=== PATIENT | female | born 2000 | race Caucasian/White ===

== ENCOUNTER 2018-08-07 22:51 | Outpatient (CLI) | payer BC ==
[2018-08-07] MEDS: ACETAMINOPHEN 500 MG TAB PO (23:47)
[2018-08-07 23:59] LABS: ADD MAN DIFF? NO
[2018-08-08] LABS: BASOPHILS % 0.2 % (0.0-2.0); HEMATOCRIT 33.1 % (37.0-47.0); HEMOGLOBIN 10.6 g/dl (12.0-16.0); LYMPHOCYTES # 2.1 10^3/ul (0.8-2.9); LYMPHOCYTES % 13.2 % (18.0-55.0); MEAN CORPUSCULAR HEMOGLOBIN 27.5 pg (29.0-33.0); MEAN PLATELET VOLUME 10.7 fl (7.4-10.4); MONOCYTE # 1.3 10^3/ul (0.3-0.9); MONOCYTES % 7.9 % (0.0-13.0); NEUTROPHIL # 12.4 10^3/ul (1.6-7.5); NEUTROPHILS % 77.6 % (30.0-74.0); PLATELET COUNT 330 10^3/UL (140-415); RED BLOOD COUNT 3.85 10^6/ul (4.20-5.40); RED CELL DISTRIBUTION WIDTH 12.3 % (11.5-14.5)
[2018-08-08] MEDS: BETAMET NA PHOS/AC(6 MG/ML) 2 ML INJ SYG IM (00:02)
[2018-08-08 00:05] LABS: ADD UMIC YES; UR ASCORBIC ACID NEGATIVE (NEGATIVE); UR BILIRUBIN (Dip) 1+ mg/dL (NEGATIVE); UR BLOOD (Dip) NEGATIVE (NEGATIVE); UR CLARITY SLIGHTLY CLOUDY (CLEAR); UR COLOR AMBER (YELLOW); UR GLUCOSE (Dip) NEGATIVE (NEGATIVE); UR KETONES (Dip) TRACE mg/dL (NEGATIVE); UR LEUKOCYTE ESTERASE (Dip) TRACE Leu/ul (NEGATIVE); UR MUCUS MANY /HPF (NONE SEEN); UR NITRITE (Dip) NEGATIVE (NEGATIVE); UR RBC 0 /HPF (0-5); UR SQUAMOUS EPITHELIAL CELL FEW /HPF (FEW); UR TOTAL PROTEIN (Dip) 1+ mg/dl (NEGATIVE); UR UROBILINOGEN (Dip) 2+ mg/dL (NEGATIVE); UR WBC 5 /HPF (0-5)
== END 2018-08-08 01:40 | disposition home or self-care (01) ==
LOC: OBT 22:51 → L-D 22:52
DX: O60.03 Preterm labor without delivery, third trimester (principal); Z3A.30 30 weeks gestation of pregnancy
CPT/HCPCS: 76817; 76818; 81001; 85025; 87086

== ENCOUNTER 2018-08-09 12:44 | Inpatient (IN) | payer BC ==
[2018-08-09 13:25] LABS: ADD UMIC NO; UR ASCORBIC ACID 20 mg/dL (NEGATIVE); UR BILIRUBIN (Dip) NEGATIVE (NEGATIVE); UR BLOOD (Dip) NEGATIVE (NEGATIVE); UR CLARITY CLEAR (CLEAR); UR COLOR AMBER (YELLOW); UR GLUCOSE (Dip) NEGATIVE (NEGATIVE); UR KETONES (Dip) 2+ mg/dL (NEGATIVE); UR LEUKOCYTE ESTERASE (Dip) NEGATIVE Leu/ul (NEGATIVE); UR NITRITE (Dip) NEGATIVE (NEGATIVE); UR SPECIFIC GRAVITY (Dip) 1.025 (1.003-1.030); UR TOTAL PROTEIN (Dip) NEGATIVE (NEGATIVE); UR UROBILINOGEN (Dip) 2+ mg/dL (NEGATIVE)
[2018-08-09] MEDS ORDERED: LACTATED RINGER'S 1,000 ML IV (14:00)
[2018-08-09] MEDS ORDERED: CEFTRIAXONE 1 GM INJ IVPB (14:00)
[2018-08-09] MEDS ORDERED: CEFTRIAXONE 1 GM/NS 50 ML IVPB (15:00)
[2018-08-09] MEDS: SOD CHLORIDE 0.9% 1,000 ML IV (17:11)
[2018-08-09] MEDS: CEFTRIAXONE 1 GM/50 ML (PMX) 50 ML IVPB (17:34)
[2018-08-09] MEDS: NIFEdipine (XL) 30 MG TAB PO (21:35)
[2018-08-10] MEDS: SOD CHLORIDE 0.9% 1,000 ML IV ×3 (00:11→09:17)
[2018-08-10] MEDS: FERROUS SULFATE (EC) 325 MG TAB PO (09:17)
[2018-08-10] MEDS: PRENATAL VITAMIN PO (09:17)
[2018-08-10] MEDS: NIFEdipine (XL) 30 MG TAB PO (09:20)
[2018-08-10 11:09] LABS: ALANINE AMINOTRANSFERASE 114 IU/L (13-69); ALBUMIN 3.8 g/dl (3.3-4.9); ALBUMIN/GLOBULIN RATIO 1.11; ALKALINE PHOSPHATASE 158 IU/L (42-121); ANION GAP 7 (5-13); ASPARTATE AMINO TRANSFERASE 92 IU/L (15-46); BILIRUBIN,INDIRECT 0.3 mg/dl (0-1.1); BILIRUBIN,TOTAL 0.3 mg/dl (0.2-1.3); BLOOD UREA NITROGEN 7 mg/dl (7-20); CALCIUM 8.9 mg/dl (8.4-10.2); CARBON DIOXIDE 24 mmol/L (21-31); CHLORIDE 107 mmol/L (97-110); CREATININE 0.33 mg/dl (0.44-1.00); Estimated GFR > 60 mL/min (>60); GLUCOSE 74 mg/dl (70-220); POTASSIUM 3.9 mmol/L (3.5-5.1); SODIUM 138 mmol/L (135-144); TOTAL PROTEIN 7.2 g/dl (6.1-8.1)
[2018-08-10 11:42] LABS: ADD MAN DIFF? NO
[2018-08-10 11:44] LABS: BASOPHILS % 0.3 % (0.0-2.0); EOSINOPHILS # 0.1 10^3/ul (0.0-0.5); EOSINOPHILS % 0.4 % (0.0-7.0); HEMATOCRIT 30.8 % (37.0-47.0); HEMOGLOBIN 9.8 g/dl (12.0-16.0); LYMPHOCYTES # 2.1 10^3/ul (0.8-2.9); LYMPHOCYTES % 18.3 % (18.0-55.0); MEAN CORPUSCULAR HEMOGLOBIN 27.6 pg (29.0-33.0); MEAN CORPUSCULAR HGB CONC 31.8 g/dl (32.0-37.0); MEAN CORPUSCULAR VOLUME 86.8 fl (72.0-104.0); MEAN PLATELET VOLUME 10.7 fl (7.4-10.4); MONOCYTES % 8.6 % (0.0-13.0); NEUTROPHIL # 8.3 10^3/ul (1.6-7.5); NEUTROPHILS % 71.6 % (30.0-74.0); PLATELET COUNT 315 10^3/UL (140-415); RED BLOOD COUNT 3.55 10^6/ul (4.20-5.40); RED CELL DISTRIBUTION WIDTH 12.5 % (11.5-14.5)
[2018-08-10 11:44] LABS: WHITE BLOOD COUNT 11.6 10^3/ul (4.8-10.8)
[2018-08-10] MEDS: CALCIUM/VITAMIN D (500/200) TAB PO (12:08)
[2018-08-10] MEDS: LACTATED RINGER'S 1,000 ML IV (16:51)
[2018-08-10] MEDS ORDERED: CEFTRIAXONE 1 GM/NS 50 ML IVPB (18:00)
[2018-08-11] MEDS: LACTATED RINGER'S 1,000 ML IV (03:23)
[2018-08-11] MEDS: FERROUS SULFATE (EC) 325 MG TAB PO (09:15)
[2018-08-11] MEDS: CALCIUM/VITAMIN D (500/200) TAB PO (09:15)
[2018-08-11] MEDS: PRENATAL VITAMIN PO (09:15)
== END 2018-08-11 16:02 | disposition home or self-care (01) | DRG 832 ==
LOC: OBT 12:44 → L-D 12:44 → OBT 14:10 → L-D 13:58 → PP1 14:58
DX: O99.613 Diseases of the digestive system complicating pregnancy, third trimester (principal); K80.60 Calculus of gallbladder and bile duct with cholecystitis, unspecified, without obstruction; Z3A.31 31 weeks gestation of pregnancy
CPT/HCPCS: 76705; 76817; 80053; 81003; 85025; 87086

== ENCOUNTER 2018-09-16 15:53 | Outpatient (CLI) | payer BC ==
[2018-09-16 16:57] LABS: ADD MAN DIFF? NO
[2018-09-16 16:58] LABS: WHITE BLOOD COUNT 10.6 10^3/ul (4.8-10.8)
[2018-09-16 16:58] LABS: BASOPHILS % 0.3 % (0.0-2.0); HEMATOCRIT 33.9 % (37.0-47.0); HEMOGLOBIN 10.7 g/dl (12.0-16.0); LYMPHOCYTES # 1.4 10^3/ul (0.8-2.9); LYMPHOCYTES % 13.4 % (18.0-55.0); MEAN CORPUSCULAR HEMOGLOBIN 25.7 pg (29.0-33.0); MEAN CORPUSCULAR HGB CONC 31.6 g/dl (32.0-37.0); MEAN CORPUSCULAR VOLUME 81.5 fl (72.0-104.0); MEAN PLATELET VOLUME 11.3 fl (7.4-10.4); MONOCYTE # 0.6 10^3/ul (0.3-0.9); MONOCYTES % 5.8 % (0.0-13.0); NEUTROPHIL # 8.5 10^3/ul (1.6-7.5); NEUTROPHILS % 80.2 % (30.0-74.0); PLATELET COUNT 285 10^3/UL (140-415); RED BLOOD COUNT 4.16 10^6/ul (4.20-5.40); RED CELL DISTRIBUTION WIDTH 13.1 % (11.5-14.5)
[2018-09-16 17:17] LABS: ALBUMIN/GLOBULIN RATIO 1.08; ANION GAP 10 (5-13); BILIRUBIN,TOTAL 0.3 mg/dl (0.2-1.3); Estimated GFR > 60 mL/min (>60)
[2018-09-16] MEDS ORDERED: LACTATED RINGER'S 1,000 ML IV (17:30)
[2018-09-16 17:32] LABS: ADD UMIC YES; UR ASCORBIC ACID NEGATIVE (NEGATIVE); UR BACTERIA FEW /HPF (NONE SEEN); UR BILIRUBIN (Dip) NEGATIVE (NEGATIVE); UR BLOOD (Dip) NEGATIVE (NEGATIVE); UR CLARITY CLEAR (CLEAR); UR COLOR YELLOW (YELLOW); UR GLUCOSE (Dip) NEGATIVE (NEGATIVE); UR KETONES (Dip) 1+ mg/dL (NEGATIVE); UR LEUKOCYTE ESTERASE (Dip) 1+ Leu/ul (NEGATIVE); UR MUCUS FEW /HPF (NONE SEEN); UR NITRITE (Dip) NEGATIVE (NEGATIVE); UR RBC 2 /HPF (0-5); UR SPECIFIC GRAVITY (Dip) 1.024 (1.003-1.030); UR SQUAMOUS EPITHELIAL CELL FEW /HPF (FEW); UR TOTAL PROTEIN (Dip) NEGATIVE (NEGATIVE); UR UROBILINOGEN (Dip) 2+ mg/dL (NEGATIVE); UR WBC 6 /HPF (0-5)
[2018-09-16 17:34] LABS: ALANINE AMINOTRANSFERASE 25 IU/L (13-69); ALBUMIN 3.8 g/dl (3.3-4.9); ALKALINE PHOSPHATASE 258 IU/L (42-121); AMYLASE 51 U/L (11-123); ASPARTATE AMINO TRANSFERASE 48 IU/L (15-46); BILIRUBIN,INDIRECT 0.3 mg/dl (0-1.1); BLOOD UREA NITROGEN 8 mg/dl (7-20); CALCIUM 9.4 mg/dl (8.4-10.2); CARBON DIOXIDE 25 mmol/L (21-31); CHLORIDE 103 mmol/L (97-110); CREATININE 0.53 mg/dl (0.44-1.00); GLUCOSE 88 mg/dl (70-220); LIPASE 60 U/L (23-300); POTASSIUM 4.1 mmol/L (3.5-5.1); SODIUM 138 mmol/L (135-144); TOTAL PROTEIN 7.3 g/dl (6.1-8.1)
[2018-09-16] MEDS: LACTATED RINGER'S 1,000 ML IV (17:36)
[2018-09-16] MEDS: BETAMET NA PHOS/AC(6 MG/ML) 2 ML INJ SYG IM (19:29)
[2018-09-16] MEDS ORDERED: AL HYDROX/MG HYDROX/SIMETH 30 ML CUP PO (21:00)
[2018-09-17] MEDS ORDERED: PRENATAL VITAMIN PO (09:00)
== END 2018-09-16 21:30 | disposition home or self-care (01) ==
LOC: OBT 15:53 → L-D 15:54 → OBT 20:45 → PP1 20:45 → OBT 21:30
DX: O99.613 Diseases of the digestive system complicating pregnancy, third trimester (principal); K80.20 Calculus of gallbladder without cholecystitis without obstruction; Z3A.36 36 weeks gestation of pregnancy
CPT/HCPCS: 76705; 76818; 80053; 81001; 82150; 83690; 85025; 96360; 96372

== ENCOUNTER 2018-09-17 19:36 | Outpatient (CLI) | payer BC ==
[2018-09-17] MEDS ORDERED: BETAMET NA PHOS/AC(6 MG/ML) 5ML INJ INJ (21:00)
[2018-09-17] MEDS: BETAMET NA PHOS/AC(6 MG/ML) 2 ML INJ SYG IM (21:00)
== END 2018-09-17 21:20 | disposition home or self-care (01) ==
LOC: OBT 19:36 → L-D 19:36 → OBT 21:20
DX: O99.613 Diseases of the digestive system complicating pregnancy, third trimester (principal); K80.20 Calculus of gallbladder without cholecystitis without obstruction; O62.9 Abnormality of forces of labor, unspecified; Z3A.36 36 weeks gestation of pregnancy
CPT/HCPCS: 96372

== ENCOUNTER 2018-10-03 20:07 | Inpatient (IN) | payer BC ==
[2018-10-03] MEDS ORDERED: LACTATED RINGER'S 1,000 ML IV (20:35)
[2018-10-03 21:00] LABS: ADD MAN DIFF? NO
[2018-10-03] MEDS ORDERED: BUTORPHANOL 2 MG INJ IV (21:00)
[2018-10-03] MEDS ORDERED: CARBOPROST 250 MCG INJ IM (21:00)
[2018-10-03] MEDS ORDERED: OXYTOCIN 30 UNITS/LR 500 ML IV (21:00)
[2018-10-03] MEDS ORDERED: METHYLERGONOVINE 0.2 MG INJ IM (21:00)
[2018-10-03] MEDS ORDERED: IBUPROFEN 600 MG TAB PO (21:00)
[2018-10-03] MEDS ORDERED: MISOPROSTOL 200 MCG TAB PR (21:00)
[2018-10-03 21:02] LABS: BASOPHILS % 0.2 % (0.0-2.0); HEMATOCRIT 36.7 % (37.0-47.0); HEMOGLOBIN 11.4 g/dl (12.0-16.0); LYMPHOCYTES # 1.8 10^3/ul (0.8-2.9); LYMPHOCYTES % 12.2 % (18.0-55.0); MEAN CORPUSCULAR HEMOGLOBIN 25.2 pg (29.0-33.0); MEAN CORPUSCULAR HGB CONC 31.1 g/dl (32.0-37.0); MEAN PLATELET VOLUME 11.6 fl (7.4-10.4); MONOCYTE # 0.8 10^3/ul (0.3-0.9); MONOCYTES % 5.5 % (0.0-13.0); NEUTROPHIL # 12.1 10^3/ul (1.6-7.5); NEUTROPHILS % 81.6 % (30.0-74.0); PLATELET COUNT 272 10^3/UL (140-415); RED BLOOD COUNT 4.53 10^6/ul (4.20-5.40); RED CELL DISTRIBUTION WIDTH 14.3 % (11.5-14.5)
[2018-10-03 21:02] LABS: WHITE BLOOD COUNT 14.9 10^3/ul (4.8-10.8)
[2018-10-03 21:22] LABS: ALANINE AMINOTRANSFERASE 15 IU/L (13-69); ALBUMIN/GLOBULIN RATIO 0.95; ALKALINE PHOSPHATASE 298 IU/L (42-121); ANION GAP 10 (5-13); ASPARTATE AMINO TRANSFERASE 28 IU/L (15-46); BILIRUBIN,INDIRECT 0.1 mg/dl (0-1.1); BILIRUBIN,TOTAL 0.1 mg/dl (0.2-1.3); BLOOD UREA NITROGEN 12 mg/dl (7-20); CALCIUM 9.8 mg/dl (8.4-10.2); CARBON DIOXIDE 24 mmol/L (21-31); CHLORIDE 103 mmol/L (97-110); Estimated GFR > 60 mL/min (>60); GLUCOSE 74 mg/dl (70-220); POTASSIUM 3.9 mmol/L (3.5-5.1); SODIUM 137 mmol/L (135-144); TOTAL PROTEIN 8.2 g/dl (6.1-8.1); URIC ACID 5.1 mg/dl (3.1-7.9)
[2018-10-03 21:23] LABS: INR 0.89; PROTIME 12.1 Sec (11.9-14.9); PT RATIO 0.9
[2018-10-03 21:24] LABS: PARTIAL THROMBOPLASTIN TIME 25.3 Sec (23.0-35.0)
[2018-10-03] MEDS: LACTATED RINGER'S 1,000 ML IV (21:45)
[2018-10-03 21:51] LABS: HEPATITIS B SURFACE ANTIGEN NEGATIVE (NEGATIVE)
[2018-10-03 23:13] LABS: ADD UMIC NO; UR ASCORBIC ACID NEGATIVE (NEGATIVE); UR BILIRUBIN (Dip) NEGATIVE (NEGATIVE); UR BLOOD (Dip) NEGATIVE (NEGATIVE); UR CLARITY CLEAR (CLEAR); UR COLOR YELLOW (YELLOW); UR GLUCOSE (Dip) NEGATIVE (NEGATIVE); UR KETONES (Dip) TRACE mg/dL (NEGATIVE); UR LEUKOCYTE ESTERASE (Dip) NEGATIVE Leu/ul (NEGATIVE); UR NITRITE (Dip) NEGATIVE (NEGATIVE); UR SPECIFIC GRAVITY (Dip) 1.021 (1.003-1.030); UR TOTAL PROTEIN (Dip) NEGATIVE (NEGATIVE); UR UROBILINOGEN (Dip) NEGATIVE (NEGATIVE)
[2018-10-03] MEDS: ONDANSETRON 4 MG INJ IV (23:27)
[2018-10-03] MEDS ORDERED: MINERAL OIL LIGHT 10 ML VIAL (23:46)
[2018-10-04] MEDS: MINERAL OIL LIGHT 10 ML VIAL TOP (01:12)
[2018-10-04] MEDS: OXYTOCIN 30 UNITS/LR 500 ML IV ×2 (01:24→01:42)
[2018-10-04] MEDS: LIDOCAINE 1% (MPF) 30 ML INJ INJ (01:31)
[2018-10-04] MEDS ORDERED: MISOPROSTOL 200 MCG TAB PR (03:30)
[2018-10-04] MEDS ORDERED: OXYCODONE/ASPIRIN (4.88/325) TAB PO ×2 (03:30)
[2018-10-04] MEDS ORDERED: METHYLERGONOVINE 0.2 MG INJ IM (03:30)
[2018-10-04] MEDS ORDERED: ZOLPIDEM 5 MG TAB PO (03:30)
[2018-10-04] MEDS ORDERED: CARBOPROST 250 MCG INJ IM (03:30)
[2018-10-04] MEDS ORDERED: OXYTOCIN 30 UNITS/LR 500 ML IV (03:30)
[2018-10-04] MEDS: LANOLIN HPA 1 PKT TOP ×2 (03:42→03:43)
[2018-10-04] MEDS: WITCH HAZEL/GLYCERIN PAD PR (03:42)
[2018-10-04] MEDS: BENZOCAINE 20% 56 ML SPRAY TOP (03:42)
[2018-10-04] MEDS: IBUPROFEN 600 MG TAB PO ×3 (05:19→17:36)
[2018-10-04] MEDS: SENNA/DOCUSATE NA (8.6MG/50MG) TAB PO ×2 (09:19→21:42)
[2018-10-04] MEDS: PRENATAL VITAMIN PO (09:19)
[2018-10-04 16:50] LABS: RAPID PLASMA REAGIN NONREACTIVE (NR)
[2018-10-05] MEDS: IBUPROFEN 600 MG TAB PO ×5 (00:31→23:26)
[2018-10-05] MEDS: PRENATAL VITAMIN PO (08:20)
[2018-10-05] MEDS: SENNA/DOCUSATE NA (8.6MG/50MG) TAB PO ×2 (08:20→21:22)
[2018-10-05 08:38] LABS: ADD MAN DIFF? NO
[2018-10-05 08:44] LABS: BASOPHILS % 0.2 % (0.0-2.0); EOSINOPHILS # 0.1 10^3/ul (0.0-0.5); EOSINOPHILS % 0.5 % (0.0-7.0); HEMOGLOBIN 9.2 g/dl (12.0-16.0); LYMPHOCYTES # 3.3 10^3/ul (0.8-2.9); LYMPHOCYTES % 25.6 % (18.0-55.0); MEAN CORPUSCULAR HEMOGLOBIN 25.8 pg (29.0-33.0); MEAN CORPUSCULAR HGB CONC 31.7 g/dl (32.0-37.0); MEAN CORPUSCULAR VOLUME 81.5 fl (72.0-104.0); MONOCYTE # 0.9 10^3/ul (0.3-0.9); MONOCYTES % 6.9 % (0.0-13.0); NEUTROPHIL # 8.6 10^3/ul (1.6-7.5); NEUTROPHILS % 66.3 % (30.0-74.0); PLATELET COUNT 218 10^3/UL (140-415); RED BLOOD COUNT 3.56 10^6/ul (4.20-5.40); RED CELL DISTRIBUTION WIDTH 14.7 % (11.5-14.5)
[2018-10-06] MEDS: IBUPROFEN 600 MG TAB PO ×3 (05:37→18:15)
[2018-10-06] MEDS: PRENATAL VITAMIN PO (09:01)
[2018-10-06] MEDS: SENNA/DOCUSATE NA (8.6MG/50MG) TAB PO (09:01)
[2018-10-06] MEDS: DIPHTH/TET/ACEL PERTUSS (ADULT) 0.5 ML VIAL IM* (12:36)
== END 2018-10-06 20:10 | disposition home or self-care (01) | DRG 807 ==
LOC: OBT 20:07 → PP1 10-04 03:18 → L-D 20:08 → OBT 20:33 → L-D 20:33
PROC: 10E0XZZ Delivery of Products of Conception, External Approach (ICD-10-PCS; principal; 2018-10-04)
DX: O99.62 Diseases of the digestive system complicating childbirth (principal); Z37.0 Single live birth; K80.20 Calculus of gallbladder without cholecystitis without obstruction; Z3A.39 39 weeks gestation of pregnancy
CPT/HCPCS: 80053; 81003; 84560; 85025; 85384; 85610; 85730; 86592; 86850; 86900; 86901; 87086; 87340; 90715

== ENCOUNTER 2018-11-21 19:06 | Emergency (ER) | payer SELFPAY, BC | END 2018-11-21 23:48 | disposition left against medical advice (07) | LOC: FTE 19:06 | DX: Z53.21 Procedure and treatment not carried out due to patient leaving prior to being seen by health care provider (principal) ==

== ENCOUNTER 2018-11-22 04:52 | Inpatient (IN) | payer BC ==
[2018-11-22] MEDS ORDERED: NACL 0.9% 3 ML SYG IV (06:00)
[2018-11-22] MEDS ORDERED: morphine 2 MG INJ IV (06:00)
[2018-11-22] MEDS: DEXTROSE 5%-0.45% NACL 1,000 ML IV ×3 (06:14→21:49)
[2018-11-22] MEDS: PIPER-TAZO 3.375 GM IV (PMX) 100 ML IVPB ×4 (07:53→23:56)
[2018-11-22 08:26] LABS: WHITE BLOOD COUNT 23.6 10^3/ul (4.8-10.8)
[2018-11-22 08:26] LABS: ABNORMAL IP MESSAGE 1; HEMATOCRIT 39.1 % (37.0-47.0); HEMOGLOBIN 12.1 g/dl (12.0-16.0); MEAN CORPUSCULAR HEMOGLOBIN 25.9 pg (29.0-33.0); MEAN CORPUSCULAR HGB CONC 30.9 g/dl (32.0-37.0); MEAN CORPUSCULAR VOLUME 83.5 fl (72.0-104.0); MEAN PLATELET VOLUME 10.7 fl (7.4-10.4); PLATELET COUNT 544 10^3/UL (140-415); RED BLOOD COUNT 4.68 10^6/ul (4.20-5.40); RED CELL DISTRIBUTION WIDTH 16.8 % (11.5-14.5)
[2018-11-22 08:27] LABS: POSITIVE DIFF @See below
[2018-11-22 08:28] LABS: ADD MAN DIFF? YES
[2018-11-22 08:40] LABS: BASOPHILS % 0.2 % (0.0-2.0); LYMPHOCYTES # 0.9 10^3/ul (0.8-2.9); LYMPHOCYTES % 3.6 % (18.0-55.0); MONOCYTE # 1.5 10^3/ul (0.3-0.9); MONOCYTES % 6.3 % (0.0-13.0); NEUTROPHIL # 21.1 10^3/ul (1.6-7.5); NEUTROPHILS % 89.3 % (30.0-74.0)
[2018-11-22] MEDS: morphine 4 MG/ML VIAL IV ×2 (08:45→15:50)
[2018-11-22 08:46] LABS: ALANINE AMINOTRANSFERASE 16 IU/L (13-69); ALBUMIN 4.6 g/dl (3.3-4.9); ALBUMIN/GLOBULIN RATIO 1.31; ALKALINE PHOSPHATASE 65 IU/L (42-121); ANION GAP 12 (5-13); ASPARTATE AMINO TRANSFERASE 31 IU/L (15-46); BILIRUBIN,INDIRECT 0.2 mg/dl (0-1.1); BILIRUBIN,TOTAL 0.2 mg/dl (0.2-1.3); BLOOD UREA NITROGEN 13 mg/dl (7-20); CALCIUM 9.8 mg/dl (8.4-10.2); CARBON DIOXIDE 28 mmol/L (21-31); CHLORIDE 105 mmol/L (97-110); CREATININE 0.47 mg/dl (0.44-1.00); Estimated GFR > 60 mL/min (>60); GLUCOSE 159 mg/dl (70-220); POTASSIUM 3.7 mmol/L (3.5-5.1); SODIUM 145 mmol/L (135-144); TOTAL PROTEIN 8.1 g/dl (6.1-8.1)
[2018-11-22 09:35] LABS: ANISOCYTOSIS 1+ (0-0); BAND NEUTROPHILS #M 1.4 10^3/ul (0.0-0.6); BAND NEUTROPHILS % (M) 6 % (0-10); GIANT THROMBO% (M) 1 % (0-0); LYMPHOCYTES #M 0.7 10^3/ul (0.8-2.9); LYMPHOCYTES % (M) 3 % (18-55); MICROCYTOSIS 1+ (0-0); MONOCYTE #M 0.7 10^3/ul (0.3-0.9); MONOCYTES % (M) 3 % (0-13); OVALOCYTES 1+ (0-0); PLATELET ESTIMATE INCREASED; POLYCHROMASIA 2+ (0-0); SEG NEUT #M 21.1 10^3/ul (1.6-7.5); SEGMENTED NEUTROPHILS (M) % 88 % (30-74); SMUDGE%M 5 % (0-0)
[2018-11-22] MEDS: ONDANSETRON 4 MG INJ IV (18:19)
[2018-11-22] MEDS: KETOROLAC 30 MG INJ IV (21:49)
[2018-11-23] MEDS: KETOROLAC 30 MG INJ IV ×3 (04:54→19:00)
[2018-11-23] MEDS: PIPER-TAZO 3.375 GM IV (PMX) 100 ML IVPB ×3 (05:06→17:59)
[2018-11-23] MEDS: DEXTROSE 5%-0.45% NACL 1,000 ML IV ×2 (06:55→08:04)
[2018-11-23 07:01] LABS: ADD MAN DIFF? NO
[2018-11-23 07:08] LABS: WHITE BLOOD COUNT 19.5 10^3/ul (4.8-10.8)
[2018-11-23 07:08] LABS: ABNORMAL IP MESSAGE 1; BASOPHILS % 0.1 % (0.0-2.0); EOSINOPHILS % 0.1 % (0.0-7.0); HEMATOCRIT 31.8 % (37.0-47.0); HEMOGLOBIN 9.8 g/dl (12.0-16.0); LYMPHOCYTES # 1.4 10^3/ul (0.8-2.9); LYMPHOCYTES % 7.1 % (18.0-55.0); MEAN CORPUSCULAR HEMOGLOBIN 25.7 pg (29.0-33.0); MEAN CORPUSCULAR HGB CONC 30.8 g/dl (32.0-37.0); MEAN CORPUSCULAR VOLUME 83.2 fl (72.0-104.0); MEAN PLATELET VOLUME 10.4 fl (7.4-10.4); MONOCYTE # 1.6 10^3/ul (0.3-0.9); MONOCYTES % 7.9 % (0.0-13.0); NEUTROPHIL # 16.5 10^3/ul (1.6-7.5); NEUTROPHILS % 84.3 % (30.0-74.0); PLATELET COUNT 349 10^3/UL (140-415); RED BLOOD COUNT 3.82 10^6/ul (4.20-5.40); RED CELL DISTRIBUTION WIDTH 16.7 % (11.5-14.5)
[2018-11-23 07:14] LABS: POSITIVE DIFF @See below
[2018-11-23 07:31] LABS: LIPASE 1582 U/L (23-300)
[2018-11-23 08:58] LABS: ANION GAP 11 (5-13); BLOOD UREA NITROGEN 7 mg/dl (7-20); CALCIUM 9.1 mg/dl (8.4-10.2); CARBON DIOXIDE 28 mmol/L (21-31); CHLORIDE 101 mmol/L (97-110); Estimated GFR > 60 mL/min (>60); GLUCOSE 100 mg/dl (70-220); MAGNESIUM 1.8 mg/dl (1.7-2.5); POTASSIUM 3.1 mmol/L (3.5-5.1); SODIUM 140 mmol/L (135-144)
[2018-11-23] MEDS: POTASSIUM CHLORIDE 30 MEQ in SOD CHLORIDE 0.9% 1,000 ML IV (15:27)
[2018-11-23] MEDS: POTASSIUM CHLORIDE 100 ML IVPB ×2 (15:27→19:00)
[2018-11-23] MEDS ORDERED: LABETALOL HCL 20MG INJ IV ×2 (16:30→22:00)
[2018-11-23] MEDS ORDERED: ONDANSETRON 4 MG INJ IV ×3 (16:30→23:30)
[2018-11-23] MEDS ORDERED: FENTAnyl 50 MCG/ML VIAL IV ×5 (16:30→22:00)
[2018-11-23] MEDS ORDERED: hydrALAzine 20 MG INJ IV ×2 (16:30→22:00)
[2018-11-23] MEDS ORDERED: EPHEDrine SULFATE 50 MG/5 ML SYG IV ×2 (16:30→22:00)
[2018-11-23] MEDS ORDERED: METOCLOPRAMIDE 10 MG INJ IV ×2 (16:30→22:00)
[2018-11-23] MEDS: PROPOFOL 40 ML (16:48)
[2018-11-23] MEDS: PANTOPRAZOLE 40 MG INJ IV (17:59)
[2018-11-23] MEDS: INDOMETHACIN 50 MG SUPP PR (18:00)
[2018-11-23] MEDS ORDERED: ROPIVACAINE 0.5 % 30 ML VIAL (21:08)
[2018-11-23] MEDS ORDERED: FENTAnyl 50 MCG/ML VIAL ×2 (21:08→21:53)
[2018-11-23] MEDS ORDERED: PROPOFOL 20 ML (21:08)
[2018-11-23] MEDS ORDERED: MIDAZOLAM 1 MG/ML 2 ML INJ (21:08)
[2018-11-23] MEDS ORDERED: ROCURONIUM 50 MG INJ (21:08)
[2018-11-23] MEDS: BUPIVACAINE 0.5%/EPI (SDV) 30 ML INJ (21:57)
[2018-11-23] MEDS: LIDOCAINE 2% (MDV) 20 ML INJ (21:57)
[2018-11-23] MEDS ORDERED: HYDROmorphONE 1 MG/5 ML IV SYRINGE IV ×3 (22:00)
[2018-11-23] MEDS ORDERED: CEFAZOLIN 1 GM INJ (22:00)
[2018-11-23] MEDS ORDERED: MEPERIDINE 25 MG INJ IV (22:00)
[2018-11-23] MEDS ORDERED: DEXAMETHASONE 4 MG/ML 5 ML INJ (22:00)
[2018-11-23] MEDS ORDERED: DIPHENHYDRAMINE 50 MG INJ IV (22:00)
[2018-11-23] MEDS ORDERED: KETOROLAC 30 MG INJ (22:00)
[2018-11-23] MEDS ORDERED: ONDANSETRON 4 MG INJ (22:00)
[2018-11-23] MEDS ORDERED: METOCLOPRAMIDE 10 MG INJ (22:00)
[2018-11-23] MEDS ORDERED: NEOSTIGMINE 3 MG/3 ML SYRINGE ×2 (22:36)
[2018-11-23] MEDS ORDERED: GLYCOPYRROLATE 0.4 MG INJ (22:36)
[2018-11-23] MEDS ORDERED: ACETAMINOPHEN 325 MG TAB PO (23:30)
[2018-11-23] MEDS ORDERED: HYDROmorphONE 0.5 MG/0.5 ML SYG IV (23:30)
[2018-11-23] MEDS ORDERED: OXYCODONE/ACETAMINOPHEN (5/325) TAB PO (23:30)
[2018-11-24] MEDS: PIPER-TAZO 3.375 GM IV (PMX) 100 ML IVPB ×4 (00:15→17:21)
[2018-11-24] MEDS: D5W-0.45 NACL + KCL 20 MEQ 1,000 ML IV ×3 (00:16→17:21)
[2018-11-24] MEDS: PANTOPRAZOLE 40 MG INJ IV ×2 (05:16→17:21)
[2018-11-24 07:26] LABS: ADD MAN DIFF? NO
[2018-11-24 07:32] LABS: WHITE BLOOD COUNT 16.5 10^3/ul (4.8-10.8)
[2018-11-24 07:32] LABS: ABNORMAL IP MESSAGE 1; BASOPHILS % 0.2 % (0.0-2.0); HEMATOCRIT 28.5 % (37.0-47.0); HEMOGLOBIN 8.7 g/dl (12.0-16.0); LYMPHOCYTES # 0.5 10^3/ul (0.8-2.9); LYMPHOCYTES % 3.3 % (18.0-55.0); MEAN CORPUSCULAR HGB CONC 30.5 g/dl (32.0-37.0); MEAN CORPUSCULAR VOLUME 85.1 fl (72.0-104.0); MEAN PLATELET VOLUME 10.7 fl (7.4-10.4); MONOCYTE # 0.5 10^3/ul (0.3-0.9); MONOCYTES % 3.2 % (0.0-13.0); NEUTROPHIL # 15.2 10^3/ul (1.6-7.5); NEUTROPHILS % 92.4 % (30.0-74.0); PLATELET COUNT 342 10^3/UL (140-415); RED BLOOD COUNT 3.35 10^6/ul (4.20-5.40); RED CELL DISTRIBUTION WIDTH 16.4 % (11.5-14.5)
[2018-11-24 07:45] LABS: POSITIVE DIFF @See below
[2018-11-24 08:17] LABS: ANION GAP 10 (5-13); BLOOD UREA NITROGEN 5 mg/dl (7-20); CALCIUM 9.1 mg/dl (8.4-10.2); CARBON DIOXIDE 27 mmol/L (21-31); CHLORIDE 105 mmol/L (97-110); CREATININE 0.45 mg/dl (0.44-1.00); Estimated GFR > 60 mL/min (>60); GLUCOSE 126 mg/dl (70-220); MAGNESIUM 1.8 mg/dl (1.7-2.5); POTASSIUM 3.7 mmol/L (3.5-5.1); SODIUM 142 mmol/L (135-144)
[2018-11-24] MEDS: FAMOTIDINE 20 MG INJ IV (08:52)
== END 2018-11-24 18:27 | disposition home or self-care (01) | DRG 769 ==
LOC: 5EC 04:52
PROC: 0FT44ZZ Resection of Gallbladder, Percutaneous Endoscopic Approach (ICD-10-PCS; principal; 2018-11-23 16:20)
PROC: 0DB68ZX Excision of Stomach, Via Natural or Artificial Opening Endoscopic, Diagnostic (ICD-10-PCS; 2018-11-23 16:20)
DX: O99.63 Diseases of the digestive system complicating the puerperium (principal); K85.10 Biliary acute pancreatitis without necrosis or infection; K80.10 Calculus of gallbladder with chronic cholecystitis without obstruction; K20.9 Esophagitis, unspecified; K29.70 Gastritis, unspecified, without bleeding; K29.60 Other gastritis without bleeding
CPT/HCPCS: 74181; 78226; 80048; 80053; 83690; 83735; 84100; 85025; 88304; 88305; 88312

== ENCOUNTER 2018-12-17 20:30 | Inpatient (IN) | payer BC ==
[2018-12-17] MEDS ORDERED: HYDROmorphONE 0.5 MG/0.5 ML SYG IV (22:30)
[2018-12-17] MEDS ORDERED: NACL 0.9% 3 ML SYG IV (22:30)
[2018-12-17] MEDS: SOD CHLORIDE 0.9% 1,000 ML IV (22:41)
[2018-12-17] MEDS: HYDROmorphONE 1 MG/ML SYG IV (22:41)
[2018-12-17 22:46] LABS: ADD MAN DIFF? NO
[2018-12-17 22:48] LABS: WHITE BLOOD COUNT 11.8 10^3/ul (4.8-10.8)
[2018-12-17 22:48] LABS: BASOPHILS % 0.3 % (0.0-2.0); EOSINOPHILS % 0.1 % (0.0-7.0); HEMATOCRIT 33.4 % (37.0-47.0); HEMOGLOBIN 10.1 g/dl (12.0-16.0); LYMPHOCYTES # 0.8 10^3/ul (0.8-2.9); LYMPHOCYTES % 6.9 % (18.0-55.0); MEAN CORPUSCULAR HEMOGLOBIN 25.7 pg (29.0-33.0); MEAN CORPUSCULAR HGB CONC 30.2 g/dl (32.0-37.0); MEAN PLATELET VOLUME 10.7 fl (7.4-10.4); MONOCYTE # 0.6 10^3/ul (0.3-0.9); NEUTROPHIL # 10.3 10^3/ul (1.6-7.5); NEUTROPHILS % 87.2 % (30.0-74.0); PLATELET COUNT 295 10^3/UL (140-415); RED BLOOD COUNT 3.93 10^6/ul (4.20-5.40); RED CELL DISTRIBUTION WIDTH 15.2 % (11.5-14.5)
[2018-12-17 23:06] LABS: INR 1.12; PROTIME 14.5 Sec (11.9-14.9); PT RATIO 1.1
[2018-12-17 23:07] LABS: PARTIAL THROMBOPLASTIN TIME 29.2 Sec (23.0-35.0)
[2018-12-17 23:11] LABS: ALANINE AMINOTRANSFERASE 112 IU/L (13-69); ALBUMIN 4.2 g/dl (3.3-4.9); ALBUMIN/GLOBULIN RATIO 1.31; ALKALINE PHOSPHATASE 201 IU/L (42-121); ANION GAP 11 (5-13); ASPARTATE AMINO TRANSFERASE 221 IU/L (15-46); BILIRUBIN,INDIRECT 0.5 mg/dl (0-1.1); BILIRUBIN,TOTAL 0.5 mg/dl (0.2-1.3); BLOOD UREA NITROGEN 11 mg/dl (7-20); CALCIUM 9.4 mg/dl (8.4-10.2); CARBON DIOXIDE 25 mmol/L (21-31); CHLORIDE 105 mmol/L (97-110); CHOL/HDL RATIO 1.7 RATIO; CHOLESTEROL 134 mg/dl (100-200); CREATININE 0.42 mg/dl (0.44-1.00); Estimated GFR > 60 mL/min (>60); GLUCOSE 98 mg/dl (70-220); HDL CHOLESTEROL 76 mg/dl (33-83); LDL CHOLESTEROL,CALCULATED 49 mg/dl; MAGNESIUM 1.6 mg/dl (1.7-2.5); POTASSIUM 3.9 mmol/L (3.5-5.1); SODIUM 141 mmol/L (135-144); TOTAL PROTEIN 7.4 g/dl (6.1-8.1); TRIGLYCERIDES 45 mg/dl (0-149)
[2018-12-17] MEDS ORDERED: METOCLOPRAMIDE 10 MG INJ IV (23:30)
[2018-12-17] MEDS: ONDANSETRON 4 MG INJ IV (23:35)
[2018-12-17] MEDS: MAGNESIUM SULFATE 2 GM/50 ML 50 ML IVPB (23:36)
[2018-12-17 23:41] LABS: LIPASE 32 U/L (23-300)
[2018-12-18] MEDS ORDERED: KETOROLAC 15 MG INJ IV (04:00)
[2018-12-18] MEDS: ACETAMINOPHEN 325 MG TAB PO (05:43)
[2018-12-18 06:31] LABS: ADD MAN DIFF? NO
[2018-12-18 06:33] LABS: BASOPHILS % 0.2 % (0.0-2.0); HEMATOCRIT 33.9 % (37.0-47.0); HEMOGLOBIN 10.3 g/dl (12.0-16.0); LYMPHOCYTES # 0.6 10^3/ul (0.8-2.9); LYMPHOCYTES % 3.9 % (18.0-55.0); MEAN CORPUSCULAR HEMOGLOBIN 25.6 pg (29.0-33.0); MEAN CORPUSCULAR HGB CONC 30.4 g/dl (32.0-37.0); MEAN CORPUSCULAR VOLUME 84.3 fl (72.0-104.0); MEAN PLATELET VOLUME 11.2 fl (7.4-10.4); MONOCYTES % 6.1 % (0.0-13.0); NEUTROPHIL # 13.8 10^3/ul (1.6-7.5); NEUTROPHILS % 89.2 % (30.0-74.0); PLATELET COUNT 295 10^3/UL (140-415); RED BLOOD COUNT 4.02 10^6/ul (4.20-5.40); RED CELL DISTRIBUTION WIDTH 15.4 % (11.5-14.5)
[2018-12-18 06:33] LABS: WHITE BLOOD COUNT 15.5 10^3/ul (4.8-10.8)
[2018-12-18] MEDS: PIPER-TAZO 3.375 GM IV (PMX) 100 ML IVPB ×4 (06:35→23:32)
[2018-12-18 07:13] LABS: ALANINE AMINOTRANSFERASE 217 IU/L (13-69); ALBUMIN 4.4 g/dl (3.3-4.9); ALBUMIN/GLOBULIN RATIO 1.22; ALKALINE PHOSPHATASE 262 IU/L (42-121); ANION GAP 14 (5-13); ASPARTATE AMINO TRANSFERASE 378 IU/L (15-46); BILIRUBIN,INDIRECT 0.7 mg/dl (0-1.1); BILIRUBIN,TOTAL 0.7 mg/dl (0.2-1.3); BLOOD UREA NITROGEN 11 mg/dl (7-20); CALCIUM 9.6 mg/dl (8.4-10.2); CARBON DIOXIDE 27 mmol/L (21-31); CHLORIDE 102 mmol/L (97-110); Estimated GFR > 60 mL/min (>60); GLUCOSE 120 mg/dl (70-220); SODIUM 143 mmol/L (135-144)
[2018-12-18 07:29] LABS: THYROID STIMULATING HORMONE 0.533 MIU/L (0.465-4.680)
[2018-12-18 08:50] LABS: ADD UMIC YES; UR ASCORBIC ACID NEGATIVE (NEGATIVE); UR BACTERIA MANY /HPF (NONE SEEN); UR BILIRUBIN (Dip) 1+ mg/dL (NEGATIVE); UR BLOOD (Dip) NEGATIVE (NEGATIVE); UR CLARITY TURBID (CLEAR); UR COLOR YELLOW (YELLOW); UR GLUCOSE (Dip) NEGATIVE (NEGATIVE); UR KETONES (Dip) 2+ mg/dL (NEGATIVE); UR LEUKOCYTE ESTERASE (Dip) TRACE Leu/ul (NEGATIVE); UR MUCUS FEW /HPF (NONE SEEN); UR NITRITE (Dip) NEGATIVE (NEGATIVE); UR RBC 0 /HPF (0-5); UR SPECIFIC GRAVITY (Dip) 1.032 (1.003-1.030); UR SQUAMOUS EPITHELIAL CELL FEW /HPF (FEW); UR TOTAL PROTEIN (Dip) 1+ mg/dl (NEGATIVE); UR UROBILINOGEN (Dip) 2+ mg/dL (NEGATIVE); UR WBC 11 /HPF (0-5)
[2018-12-18] MEDS: SOD CHLORIDE 0.9% 1,000 ML IV ×2 (10:54→17:53)
[2018-12-18] MEDS: RANITIDINE 150 MG TAB PO ×2 (10:56→21:41)
[2018-12-18] MEDS: LUBIPROSTONE 24 MCG CAP PO ×2 (10:56→21:41)
[2018-12-18] MEDS: ONDANSETRON 4 MG INJ IV (13:02)
[2018-12-18] MEDS: IBUPROFEN 200 MG TAB PO (13:03)
[2018-12-19] MEDS: SOD CHLORIDE 0.9% 1,000 ML IV ×2 (03:36→15:53)
[2018-12-19] MEDS: PIPER-TAZO 3.375 GM IV (PMX) 100 ML IVPB ×3 (05:18→17:28)
[2018-12-19 06:08] LABS: ADD MAN DIFF? NO
[2018-12-19 06:27] LABS: BASOPHILS % 0.4 % (0.0-2.0); EOSINOPHILS # 0.4 10^3/ul (0.0-0.5); EOSINOPHILS % 3.8 % (0.0-7.0); HEMATOCRIT 27.5 % (37.0-47.0); HEMOGLOBIN 8.5 g/dl (12.0-16.0); LYMPHOCYTES # 1.7 10^3/ul (0.8-2.9); LYMPHOCYTES % 17.2 % (18.0-55.0); MEAN CORPUSCULAR HEMOGLOBIN 26.2 pg (29.0-33.0); MEAN CORPUSCULAR HGB CONC 30.9 g/dl (32.0-37.0); MEAN CORPUSCULAR VOLUME 84.6 fl (72.0-104.0); MEAN PLATELET VOLUME 10.9 fl (7.4-10.4); MONOCYTES % 9.6 % (0.0-13.0); NEUTROPHIL # 6.9 10^3/ul (1.6-7.5); NEUTROPHILS % 68.6 % (30.0-74.0); PLATELET COUNT 232 10^3/UL (140-415); RED BLOOD COUNT 3.25 10^6/ul (4.20-5.40); RED CELL DISTRIBUTION WIDTH 15.6 % (11.5-14.5)
[2018-12-19 06:57] LABS: ALANINE AMINOTRANSFERASE 143 IU/L (13-69); ALBUMIN 3.3 g/dl (3.3-4.9); ALBUMIN/GLOBULIN RATIO 1.03; ALKALINE PHOSPHATASE 173 IU/L (42-121); ANION GAP 11 (5-13); ASPARTATE AMINO TRANSFERASE 111 IU/L (15-46); BILIRUBIN,INDIRECT 0.4 mg/dl (0-1.1); BILIRUBIN,TOTAL 0.4 mg/dl (0.2-1.3); BLOOD UREA NITROGEN 6 mg/dl (7-20); CALCIUM 9.1 mg/dl (8.4-10.2); CARBON DIOXIDE 26 mmol/L (21-31); CHLORIDE 105 mmol/L (97-110); CREATININE 0.47 mg/dl (0.44-1.00); Estimated GFR > 60 mL/min (>60); GLUCOSE 86 mg/dl (70-220); POTASSIUM 3.3 mmol/L (3.5-5.1); SODIUM 142 mmol/L (135-144); TOTAL PROTEIN 6.5 g/dl (6.1-8.1)
[2018-12-19 08:47] LABS: MAGNESIUM 1.9 mg/dl (1.7-2.5)
[2018-12-19 08:47] LABS: PHOSPHORUS 3.4 mg/dl (2.5-4.9)
[2018-12-19] MEDS: LUBIPROSTONE 24 MCG CAP PO (09:20)
[2018-12-19] MEDS: RANITIDINE 150 MG TAB PO ×2 (09:20→20:48)
[2018-12-19] MEDS: POTASSIUM CHLORIDE (SR) 20 MEQ TAB PO (13:32)
[2018-12-20] MEDS: PIPER-TAZO 3.375 GM IV (PMX) 100 ML IVPB ×4 (00:06→17:49)
[2018-12-20] MEDS: morphine 2 MG INJ IV (02:43)
[2018-12-20] MEDS: SOD CHLORIDE 0.9% 1,000 ML IV (02:44)
[2018-12-20 07:42] LABS: ADD MAN DIFF? NO
[2018-12-20 07:45] LABS: WHITE BLOOD COUNT 7.3 10^3/ul (4.8-10.8)
[2018-12-20 07:45] LABS: BASOPHILS % 0.3 % (0.0-2.0); EOSINOPHILS # 0.3 10^3/ul (0.0-0.5); EOSINOPHILS % 4.7 % (0.0-7.0); HEMATOCRIT 28.1 % (37.0-47.0); HEMOGLOBIN 8.6 g/dl (12.0-16.0); LYMPHOCYTES # 1.9 10^3/ul (0.8-2.9); LYMPHOCYTES % 26.5 % (18.0-55.0); MEAN CORPUSCULAR HEMOGLOBIN 25.7 pg (29.0-33.0); MEAN CORPUSCULAR HGB CONC 30.6 g/dl (32.0-37.0); MEAN CORPUSCULAR VOLUME 84.1 fl (72.0-104.0); MEAN PLATELET VOLUME 11.3 fl (7.4-10.4); MONOCYTE # 0.8 10^3/ul (0.3-0.9); MONOCYTES % 11.2 % (0.0-13.0); NEUTROPHIL # 4.1 10^3/ul (1.6-7.5); PLATELET COUNT 233 10^3/UL (140-415); RED BLOOD COUNT 3.34 10^6/ul (4.20-5.40); RED CELL DISTRIBUTION WIDTH 15.3 % (11.5-14.5)
[2018-12-20 08:19] LABS: ALANINE AMINOTRANSFERASE 112 IU/L (13-69); ALBUMIN 3.2 g/dl (3.3-4.9); ALKALINE PHOSPHATASE 174 IU/L (42-121); ANION GAP 8 (5-13); ASPARTATE AMINO TRANSFERASE 111 IU/L (15-46); BILIRUBIN,INDIRECT 0.2 mg/dl (0-1.1); BILIRUBIN,TOTAL 0.2 mg/dl (0.2-1.3); BLOOD UREA NITROGEN 4 mg/dl (7-20); CALCIUM 8.8 mg/dl (8.4-10.2); CARBON DIOXIDE 25 mmol/L (21-31); CHLORIDE 109 mmol/L (97-110); CREATININE 0.38 mg/dl (0.44-1.00); Estimated GFR > 60 mL/min (>60); GLUCOSE 88 mg/dl (70-220); POTASSIUM 3.7 mmol/L (3.5-5.1); SODIUM 142 mmol/L (135-144); TOTAL PROTEIN 6.1 g/dl (6.1-8.1)
[2018-12-20] MEDS: RANITIDINE 150 MG TAB PO (09:16)
[2018-12-20 13:48] LABS: HEPATITIS B SURFACE ANTIGEN NEGATIVE (NEGATIVE)
[2018-12-20 14:05] LABS: HEPATITIS B SURFACE ANTIBODY NEGATIVE (NEGATIVE)
[2018-12-20 14:06] LABS: HEPATITIS C VIRAL ANTIBODY NEGATIVE (NEGATIVE)
[2018-12-20] MEDS: INFLUENZA VIRUS VACCINE 0.5 ML (DISPENSING) IM* (17:51)
== END 2018-12-20 19:16 | disposition home or self-care (01) | DRG 872 ==
LOC: PP2 20:30
PROVIDERS: Internal Medicine
DX: A41.9 Sepsis, unspecified organism (principal); K83.09 Other cholangitis; N39.0 Urinary tract infection, site not specified; E87.6 Hypokalemia; D64.9 Anemia, unspecified; Q63.1 Lobulated, fused and horseshoe kidney; Z90.49 Acquired absence of other specified parts of digestive tract
CPT/HCPCS: 71045; 74181; 80053; 80061; 81001; 83690; 83735; 84100; 84443; 84703; 85025; 85610; 85730; 86706; 86803; 87040; 87081; 87086; 87340; 87400; 90686